=== PATIENT | male | born 1950 | race Caucasian/White ===

== ENCOUNTER 2021-08-26 19:12 | Inpatient (IN) | payer OTHER ==
[~2021-08-26] VITALS: Ht 182.9 cm; Wt 69.5 kg
[~2021-08-26 19:12] MED LIST: BENA20 PO; BENHYD1012 PO; HYDR1TAB94 PO; Hydrochlorothia25 MG PO; IBUP600 PO; Norco 5-325 Ta1 EACH PO; Ultram50 MG PO; Zofran Odt4 MG SL
[2021-08-26 19:30] LABS: PCO2 Arterial 20.8 mmHg (35-45); PO2 Arterial 125 mmHg (80-100); pH Blood Arterial 7.54 (7.35-7.45)
[2021-08-26 19:37] LABS: Hematocrit 34.8 % (37.0-53.0); Hemoglobin 12.2 g/dL (13.5-17.5); Mean Corpuscular HGB 31.3 pg (26.0-34.0); Mean Corpuscular HGB Conc 35.1 g/dL (31.5-36.5); Mean Corpuscular Volume 89 fL (80-100); Mean Platelet Volume 8.8 fL (9.1-12.4); Platelet Count 203 K/mm3 (150-400); RDW Standard Deviation 42.7 fL (35.1-46.3); White Blood Cell Count 4.39 K/mm3 (4.00-11.30)
[2021-08-26 19:59] LABS: BAND PERCENT MAN 40 % (0-8); BASOPHILS PERCENT MAN 0 % (0-2); EOSINOPHILS PERCENT MAN 0 % (0-6); LYMPHOCYTES ABSOLUTE MAN 0.17 K/mm3 (0.84-5.20); LYMPHOCYTES PERCENT MAN 4 % (21-46); METAMYELOCYTE ABSOLUTE MAN 0.39 K/mm3 (0.00-0.00); METAMYELOCYTE PERCENT MAN 9 % (0-0); MONOCYTES ABSOLUTE MAN 0.08 K/mm3 (0.16-1.47); MONOCYTES PERCENT MAN 2 % (4-13); NEUTROPHILS ABSOLUTE MAN 3.73 K/mm3 (1.96-9.15); SEG NEUTROPHILS PERCENT MAN 45 % (41-73); TOTAL CELLS COUNTED 100
[2021-08-26 20:00] LABS: Alanine Aminotransfer (ALT/SGP 25 U/L (12-78); Albumin, Blood 3.6 g/dL (3.4-5.0); Albumin/Globulin Ratio 0.9 (0.8-1.8); Alk Phos 115 U/L (50-136); Anion Gap 15 mmol/L (6-16); Aspartate Aminotrans (AST/SGOT 79 U/L (12-37); Bilirubin, Total 0.7 mg/dL (0.1-1.0); Blood Urea Nitrogen 18 mg/dL (8-24); Bun/Creatinine Ratio 15.8 (12.0-20.0); CO2, Blood 20 mmol/L (21-32); Calcium, Blood 8.7 mg/dL (8.5-10.1); Chloride, Blood 90 mmol/L (98-108); Creatinine, Blood 1.14 mg/dL (0.60-1.20); Ethanol (Alcohol), Blood, Med <3 mg/dL; Glomerular Filtration Rate >60 (60-); Glucose, Blood 103 mg/dL (70-99); Potassium, Blood 3.8 mmol/L (3.5-5.5); Sodium, Blood 125 mmol/L (136-145); Total Protein, Blood 7.6 g/dL (6.4-8.2)
[2021-08-26 20:26] LABS: Influenza A, PCR NEGATIVE (NEGATIVE); Influenza B, PCR NEGATIVE (NEGATIVE); Resp Syncytial Virus, PCR NEGATIVE (NEGATIVE); SARS-Cov-2 (COVID-19) PCR, MMC NEGATIVE (NEGATIVE)
[2021-08-26 21:30] LABS: U Amphetamine Screen Not Detected; U Barbituate Screen Not Detected; U Benzodiazapine Screen Not Detected; U Buprenorphine Screen Not Detected; U Cannabinoids Screen Not Detected; U Cocaine Screen Not Detected; U Methadone Screen Not Detected; U Methamphetamine Screen Not Detected; U Opiates Screen Not Detected; U Oxycodone Screen Not Detected; U Phencyclidine Screen Not Detected; U Propoxyphene Screen Not Detected
[2021-08-26 22:33] LABS: CPK Creatine Kinase 1068 U/L (39-308)
[2021-08-26 22:51] LABS: Creatine Kinase MB 9.4 ng/mL (0.0-3.6); Creatine Kinase MB Index 0.9 (0.0-4.0)
[2021-08-26 23:37] LABS: Source, Urine Condom Cath
[2021-08-26 23:55] LABS: Bilirubin, Urine Neg (Neg); Blood, Urine 4+ (Neg); Glucose Qualitative, Urine 3+ (Neg); Ketones, Urine 1+ (Neg); Leukocyte Esterase, Urine 1+ (Neg); Nitrite, Urine Neg (Neg); Protein, Urine 3+ (Neg); Urobilinogen, Urine 1+ (Normal)
[2021-08-26 23:59] LABS: Appearance, Urine Hazy (Clear); Color, Urine Yellow (P-Yellow)
[2021-08-27 00:03] LABS: Bacteria Many /hpf; Red Blood Cells, Urine Rare /hpf (0-2); Squamous Epithelial Cells Not Seen /hpf (Few)
[2021-08-27 00:05] LABS: Troponin I <0.015 ng/mL (0.000-0.040)
[2021-08-27 02:25] LABS: Source, Urine Foley catheter
[2021-08-27 02:33] LABS: Bilirubin, Urine Neg (Neg); Blood, Urine 5+ (Neg); Glucose Qualitative, Urine Neg (Neg); Ketones, Urine Neg (Neg); Leukocyte Esterase, Urine Neg (Neg); Nitrite, Urine Neg (Neg); Protein, Urine 3+ (Neg); Urobilinogen, Urine NORM (Normal)
[2021-08-27 02:54] LABS: Appearance, Urine Clear (Clear); Color, Urine Yellow (P-Yellow)
[2021-08-27 02:56] LABS: Bacteria Not Seen /hpf; Red Blood Cells, Urine Rare /hpf (0-2); Squamous Epithelial Cells Rare /hpf (Few); White Blood Cells, Urine 0-2 /hpf (0-5)
[2021-08-27 04:59] LABS: Hematocrit 30.1 % (37.0-53.0); Hemoglobin 10.4 g/dL (13.5-17.5); Mean Corpuscular HGB 31.5 pg (26.0-34.0); Mean Corpuscular HGB Conc 34.6 g/dL (31.5-36.5); Mean Corpuscular Volume 91 fL (80-100); Mean Platelet Volume 9.5 fL (9.1-12.4); NRBC ABSOLUTE 0.03 K/mm3 (0.00-0.02); NRBC Auto 0.1 /100 WBC (0.0-0.2); Platelet Count 140 K/mm3 (150-400); RDW Coefficient Variation 13.2 % (11.7-14.2); RDW Standard Deviation 44.9 fL (35.1-46.3); White Blood Cell Count 20.92 K/mm3 (4.00-11.30)
[2021-08-27 05:45] LABS: Anion Gap 11 mmol/L (6-16); Blood Urea Nitrogen 17 mg/dL (8-24); Bun/Creatinine Ratio 19.5 (12.0-20.0); CO2, Blood 22 mmol/L (21-32); Chloride, Blood 92 mmol/L (98-108); Creatinine, Blood 0.87 mg/dL (0.60-1.20); Glomerular Filtration Rate >60 (60-); Glucose, Blood 141 mg/dL (70-99); Potassium, Blood 3.4 mmol/L (3.5-5.5); Sodium, Blood 125 mmol/L (136-145)
[2021-08-27 05:47] LABS: CPK Creatine Kinase 2244 U/L (39-308)
--- NOTE | 2021-08-27 06:12 | NUR ---
0015 PT ARRIVES TO ICU 10 VIA GURNEY FROM ER, LETHARGIC, MOANS, DOES NOT FOLLOW COMMANDS, DOES OPEN EYES TO VERBAL BUT DOES NOT MAKE EYE CONTACT AND QUICKLY CLOSES THEM AGAIN. D10 INFUSING AT 100 ML/HR AND NS AT 50 ML/HR TO LEFT AC IV, FIELD DRESSING IN PLACE. SECOND IV ACCESS TO RIGHT FOREARM, FLUSHES WELL, SITE WNL. 0020 TRANSFERRED TO BED WITH 5 STAFF ASSIST, PARTIAL BEDBATH COMPLETED AT THIS TIME DUE TO PT ATTENDS AND BEDDING SATURATED WITH URINE. 0036 POC GLUCOSE OBTAINED, 47, D10 INCREASED TO 150 ML/HR BY VERIFICATION CLERK HIREN DENNY, THIS RN REQUESTED VERIFICATION CLERK CONTACT HOSPITALIST TREASURY ASSOCIATE FOR ORDERS TO TITRATE D10, DRESSING TO LEFT AC IV IS NOTED LOOSE, DRESSING REPLACED, ABLE TO ASPIRATE BLOOD FROM SITE AND FLUSHES WELL POST DRESSING CHANGE. 0040 LAB AT BEDSIDE FOR REFLEX LACTIC ACID DRAW, POC GLUCOSE OBTAINED, 53 0050 IV COMPATIBILITY LIST OBTAINED 0102 IV ROCEPHIN STARTED INFUSING, PIGGYBACK TO NORMAL SALINE WHICH IS MOVED TO RIGHT FOREARM IV DUE TO COMPATIBILITY ISSUES. 0106 D5 WITH THIAMINE, MVI, MAGNESIUM, ETC STARTED INFUSING AT 200 ML/HR PER ORDERS, Y SITE WITH D10, DISCUSSED COMPATIBILITY WITH PHARMACIST 0110 THIAMINE PIGGYBACK STARTED INFUSING TO RIGHT FOREARM Y SITE, COMPATIBLE WITH NORMAL SALINE AND ROCEPHIN 0112 THIS RN NOTIFIED BY LAB OF CRITICAL LACTIC ACID, 7.5, INCREASED FROM 5.8 EARLIER, THIS RN CONTACTED VERIFICATION CLERK HIREN DENNY AND REQUESTED THAT LACTIC LEVEL BE REPORTED WITH PHONE CALL TO HOSPITALIST TREASURY ASSOCIATE. ALSO REQUESTED MT TYLENOL AND CUMMINGS CATHETER ORDERS. 0125 POC GLUCOSE OBTAINED, 86 0135 INFILTRATION NOTED TO LEFT AC IV SITE, D10 MOVED TO RIGHT FOREARM IV, THIAMINE INFUSION PAUSED 0145 REQUESTED EXTENDED DWELL ACCESS, ASSESSING FOR PERIPHERAL SITE 0200 EXTENDED DWELL TO LEFT UPPER ARM, PT TOLERATED WELL, NEW 18 GAUGE TO LEFT FOREARM, LEFT AC IV DC'D, ZITHROMAX STARTED INFUSING TO LEFT FOREARM IV, D10/D5 THIAMINE/NORMAL SALINE MOVED TO EXTENDED DWELL FOR INFUSION, THIAMINE INFUSION RESUMED TO RIGHT FOREARM IV. 0213 LR COMPATIBLE WITH THIAMINE INFUSION, LR BOLUS TO RIGHT FOREARM IV PER ORDERS 0214 TEMP PROBE CUMMINGS PLACED, PT TOLERATED WELL, UA SENT 0221 POC GLUCOSE OBTAINED 157, REMAINS GREATER THAN 100 FOR THE REMAINDER OF THIS SHIFT 0240 PHOTOS OF BUTTOCKS ABRASION ATTEMPTED, CAMERA DOES NOT POWER ON AT THIS TIME, MEPILEX SACRAL PROTECTION PLACED AND MT TYLENOL ADMIN 0300 PT ABLE TO FORM WORDS, DOES NOT KNOW WHERE HE IS, EXPLAINED THAT HE IS IN [facility] IN THE ICU, HE IS UNABLE TO RESTATE THIS 3 MINUTES LATER PT HEART RATE, TEMP, AND GLUCOSE CONTINUE TO IMPROVE FOR THE DURATION OF THE SHIFT. HE IS NOTED TO FREQUENTLY REPOSITION HIMSELF AND SIT UP, BED ALARM IS ARMED. DISCUSSED REPEAT LACTIC WITH DR MCKENNA AND ADDED ON TO 0440 LABS, THIS IS IMPROVED TO 3.3 AND RESULTS DISCUSSED WITH HIREN DENNY.
--- NOTE | 2021-08-27 12:23 | NUR ---
PT GIVEN ATIVAN AT 0910 2MG ON A ONE MG ORDER THE ORDERS FOR 2MG Q15 HAD NOT BEEN ENTERED AT THAT TIME. PYXIS SHOWNING UNDOCUMENTED WASTE OF 1MG BUT THIS ISNT ACCURATE BASED ON ORIGINAL STATEMENT.
--- NOTE | 2021-08-27 12:25 | NUR ---
ASSUMED CARE OF PT AT 0700. PT ASSEMENT PERFORMED SNOTED IN CHART. DR MULLER BY AND ORDER TO START CIWA PROTOCOL GIVEN, ALSO TO REDUCE D10 AND TITRATE TO DC IF PT BS CONTINUE TO NORMALIZE. PT BS AT THIS TIME 139, D10 DOWN TO 50ML/HR. WILL CONTINUE TO MONITOR, PT VITALS AT THIS TIME ARE WNL. PT RESTRAINED AT 1100 FOR CONTINUED AGITATION ATTEMPS TO REMOVE MED DEVICES.
--- NOTE | 2021-08-27 16:33 | NUR ---
DR MULLER STATED IF ABLE, TITRAIT OFF THE D10 AND RESTART IF BS LESS THEN 100. NSS STARTED WELL AT 125ML/HR
[2021-08-28 04:47] LABS: Hematocrit 29.4 % (37.0-53.0); Hemoglobin 10.1 g/dL (13.5-17.5); Mean Corpuscular HGB 31.1 pg (26.0-34.0); Mean Corpuscular HGB Conc 34.4 g/dL (31.5-36.5); Mean Corpuscular Volume 91 fL (80-100); Mean Platelet Volume 10.7 fL (9.1-12.4); Platelet Count 89 K/mm3 (150-400); RDW Coefficient Variation 12.7 % (11.7-14.2); RDW Standard Deviation 42.2 fL (35.1-46.3); Red Blood Cell Count 3.25 M/mm3 (4.30-5.90); White Blood Cell Count 14.94 K/mm3 (4.00-11.30)
[2021-08-28 05:04] LABS: Alanine Aminotransfer (ALT/SGP 35 U/L (12-78); Albumin, Blood 2.3 g/dL (3.4-5.0); Albumin/Globulin Ratio 0.7 (0.8-1.8); Alk Phos 73 U/L (50-136); Anion Gap 9 mmol/L (6-16); Aspartate Aminotrans (AST/SGOT 133 U/L (12-37); Bilirubin, Total 0.4 mg/dL (0.1-1.0); Blood Urea Nitrogen 11 mg/dL (8-24); Bun/Creatinine Ratio 18.4 (12.0-20.0); CO2, Blood 25 mmol/L (21-32); Calcium, Blood 7.1 mg/dL (8.5-10.1); Chloride, Blood 91 mmol/L (98-108); Globulin, Blood 3.5 g/dL (2.2-4.0); Glomerular Filtration Rate >60 (60-); Glucose, Blood 100 mg/dL (70-99); Potassium, Blood 3.1 mmol/L (3.5-5.5); Sodium, Blood 125 mmol/L (136-145); Total Protein, Blood 5.8 g/dL (6.4-8.2)
[2021-08-28 05:09] LABS: BAND PERCENT MAN 43 % (0-8); BASOPHILS PERCENT MAN 0 % (0-2); EOSINOPHILS PERCENT MAN 0 % (0-6); LYMPHOCYTES ABSOLUTE MAN 0.59 K/mm3 (0.84-5.20); LYMPHOCYTES PERCENT MAN 4 % (21-46); MONOCYTES ABSOLUTE MAN 0.14 K/mm3 (0.16-1.47); MONOCYTES PERCENT MAN 1 % (4-13); NEUTROPHILS ABSOLUTE MAN 14.19 K/mm3 (1.96-9.15); SEG NEUTROPHILS PERCENT MAN 52 % (41-73); TOTAL CELLS COUNTED 100
--- NOTE | 2021-08-28 06:12 | NUR ---
SHIFT SUMMARY ASSUMED CARE OF PT AT 1900. PT ONLY RESPONDS TO VERBAL OR PAINFUL STIMULUS. NOW LATER IN THE SHIFT AT AROUND 0500, PT IS ABLE TO OPEN EYES AND SAY ONE WORD SENTENCES LIKE "NO" AND "WHY". HEART SOUNDS REGULAR, TELE SHOWS SINUS. LUNG SOUNDS COURSE WITH WHEEZES. PT IS COUGHING UP THICK YELLOW SPUTUM. PT WAS ON 3L NC AT THE START OF SHIFT BUT IS NOW RA. PT WILL DESAT WHEN HE COUGHS OR HAS PHLEM IN HIS THROAT, BUT POP BACK UP TO 90'S WHEN CLEARED. PT HAS A CUMMINGS DRAINING YELLOW URINE. PT CIWAH RANGED IN THE 20'S. MEDICATED PER EMAR. PT REMAINED RESTRAINED DUE TO CONFUSION AND PULLING ON CATHETER AND IV LINES. PT HAS A SMALL ABRASION ON HIS L BUTTOCK. PICTURES IN CHART. CALL LIGHT IN REACH, BED IN LOWEST POSTION, BED ALARM ON.
--- NOTE | 2021-08-28 17:24 | NUR ---
assumed care of pt in the am. pt resting comfortable and in no distress. pt continues to have ciwa scores in the 8-15 range. pt also continues to have copious amounts of secreations req. deep oral and nt suction. sats have remained in the upper 90s but at times of cough, upper 80s. will continue to monitor
--- NOTE | 2021-08-28 19:30 | NUR ---
ASSESSMENT/ASSUMED CARE PT SLEEPING, AWAKENS TO VERBAL STIMULI. SPEECH MUMBLED. NOT FOLLOWING INSTRUCTIONS. BACK TO SLEEP QUICKLY WHEN UNDISTURBED. LUNGS WITH SNORING SOUNDS TO UPPER LOBES AND CLEAR IN THE BASES BUT DECREASED. PT ON 5 LITER O2 VIA NC. SPO2 100%. DECREASED FIO2 TO 3 LITERS VIA NC. RESP EVEN AND NONLABORED. HEART RATE REGULAR, BP STABLE. BT+ HYPOACTIVE. PT NPO. IB 20 G TO RIGHT FOREARM SALINE LOCKED, SITE CLEAR, FLUSHED WITHOUT DIFFICULTY. POWER GLIDE TO LEFT UPPER WITH NS AT 125 ML/HR AND D10 AT 35 ML/HR. SITE CLEAR, DRSG INTACT. CUMMINGS CATH PATENT DRAINING YELLOW URINE. ATTENDS CD&I. DRSG TO COCCYX INTACT. BILAT SOFT WRIST RESTRAINTS ON.
--- NOTE | 2021-08-28 20:24 | NUR ---
MD CALL CALL TO DR RAMIREZ REGARDING D10 GTT AND BLOOD GLUCOSE. RECEIVED ORDERSE TO KEEP BLOOD GLUCOSE 70-80, AND D10 TITRATE.
--- NOTE | 2021-08-28 22:24 | NUR ---
O2 INCREASED O2 BACK TO 5 LITERS DUE TO SPO2 AT 87% ON 3 LITERS VIA NC. PT SLEEPING AND SNORING.
[2021-08-29 04:19] LABS: Hematocrit 28.2 % (37.0-53.0); Hemoglobin 9.6 g/dL (13.5-17.5); Mean Corpuscular HGB 30.7 pg (26.0-34.0); Mean Corpuscular Volume 90 fL (80-100); Mean Platelet Volume 11.4 fL (9.1-12.4); Platelet Count 71 K/mm3 (150-400); RDW Coefficient Variation 12.7 % (11.7-14.2); RDW Standard Deviation 41.9 fL (35.1-46.3); Red Blood Cell Count 3.13 M/mm3 (4.30-5.90)
[2021-08-29 04:33] LABS: Alanine Aminotransfer (ALT/SGP 29 U/L (12-78); Albumin, Blood 2.2 g/dL (3.4-5.0); Albumin/Globulin Ratio 0.7 (0.8-1.8); Alk Phos 79 U/L (50-136); Anion Gap 7 mmol/L (6-16); Aspartate Aminotrans (AST/SGOT 85 U/L (12-37); Bilirubin, Total 0.2 mg/dL (0.1-1.0); Blood Urea Nitrogen 7 mg/dL (8-24); Bun/Creatinine Ratio 14.1 (12.0-20.0); CO2, Blood 26 mmol/L (21-32); Calcium, Blood 6.8 mg/dL (8.5-10.1); Chloride, Blood 92 mmol/L (98-108); Globulin, Blood 3.3 g/dL (2.2-4.0); Glomerular Filtration Rate >60 (60-); Glucose, Blood 97 mg/dL (70-99); Magnesium, Blood 1.5 mg/dL (1.6-2.4); Potassium, Blood 2.8 mmol/L (3.5-5.5); Sodium, Blood 125 mmol/L (136-145); Total Protein, Blood 5.5 g/dL (6.4-8.2)
--- NOTE | 2021-08-29 04:56 | NUR ---
CALL TO MD CALL TO DR MCKENNA REGARDING LABS, ORDERS OBTAINED.
--- NOTE | 2021-08-29 06:04 | NUR ---
SHIFT SUMMARY PT RESTING QUIETLY. MUMBLES TO VERBAL STIMULI BUT UNABLE TO UNDERSTAND. FOLLOWS SOME SIMPLE INSTRUCTIONS AT TIMES LIKE OPEN YOUR MOUTH. BILAT SOFT WRIST RESTRAINTS ON. PT TURNED Q2HRS. FREQUENT ORAL CARE DONE DUE TO PT BEING A MOUTH BREATHER. O2 TITRATED DOWN TO 3 LITERS THAN BACK UP TO 5 LITERS IN THE MOUTH DUE TO MOUTH BREATHING. HEART RATE REGULAR, BP STABLE. CALL TO DR MCKENNA WITH LABS THIS AM, REPLACING POTASSIUM, MAG AND CALCIUM. STOPPED LOVENOX DUE TO DECREASE IN PLT TO 71, SCD'S APPLIED. CUMMINGS CATH PATENT AND DRAINING YELLOW URINE. PT OFF D10, CONT TO MONITOR BLOOD GLUCOSE TO KEEP ABOVE 80. REPORT TO ON COMING NURSE.
--- NOTE | 2021-08-29 09:35 | NUR ---
ASSUMED CARE NOTE: ASSUMED CARE OF PT AT 0700. PT RESPONDS TO PAINFUL STIMULI, UNABLE TO FOLLOW COMMANDS OR COMMUNICATE NEEDS. MOANS AND MOVING HEAD FROM SIDE TO SIDE WITH ORAL CARE. PT IS IN NSR WITH HR IN THE 70'S, BP STABLE. PT IS HAVING SNORING RESPERATIONS TO BILAT UPPER LOBES, DIM IN THE BASES. NT SUCTION PROVIDED YELLOW MUCOID SECRETIONS NOTED, PINK TINGED. ORAL CARE PROVIDED. BOWEL TONES HYPO ACTIVE TO ALL QUADRANTS. CUMMINGS PATENT, DRAINING TO GRAVITY. WILL CONTINUE TO MONITOR T/O SHIFT.
[2021-08-29 11:24] LABS: Albumin, Blood 2.3 g/dL (3.4-5.0); Anion Gap 7 mmol/L (6-16); Blood Urea Nitrogen 6 mg/dL (8-24); Bun/Creatinine Ratio 10.4 (12.0-20.0); CO2, Blood 26 mmol/L (21-32); Chloride, Blood 94 mmol/L (98-108); Creatinine, Blood 0.58 mg/dL (0.60-1.20); Glomerular Filtration Rate >60 (60-); Glucose, Blood 85 mg/dL (70-99); Phosphorus, Blood 2.5 mg/dL (2.5-4.9); Potassium, Blood 3.7 mmol/L (3.5-5.5); Sodium, Blood 127 mmol/L (136-145)
[2021-08-29 11:54] LABS: PO2 Arterial 196 mmHg (80-100); pH Blood Arterial 7.31 (7.35-7.45)
--- NOTE | 2021-08-29 14:34 | NUR ---
UPDATE: PT REMAINS SOMNOLENT. AT APPROX 1130, PT DESATURATED INTO THE LOW 80'S,RT AT BEDSIDE. CALLED, ORDERS TO OBTAIN CHEST X-RAY, INITIATE BIPAP PROTOCOL. BIPAP SETTINGS 14/8, FiO2 50%, RR 15-20. SOFT BLOOD PRESSURES NOTED, MAP ABOVE 65. WILL CONTINUE TO MONITOR
--- NOTE | 2021-08-29 17:04 | NUR ---
UPDATE: PT DESATURATED INTO THE LOW 50'S, FiO2 INCREASED TO 100%, RT CALLED TO BEDSIDE. PT NT SUCTIONED, FROTHY PINK TINGED SECRETIONS NOTED, SPO2 INCREASED TO 97%, FiO2 DROPPED TO 30% WILL CONTINUE TO MONITOR
--- NOTE | 2021-08-29 18:58 | NUR ---
SHIFT SUMMARY: SEE PREVIOUS NOTES. PT IS RESPONDING TO PAINFUL STIMULI, MUMBLES A FEW WORDS SUCH "YES, NO, WHAT" DOES NOT FOLLOW COMMNDS. PT IS MOVING AROUND MORE THAN EARLIER IN THE SHIFT. PT ON BIPAP SETTINGS 14/8, FiO2 30% WITH SPO2 ABOVE 90% PT WILL DESATURATE QUICKLY, INDICATING HE NEEDS NT SUCTION, FROTHY PINK TINGED SECRETIONS NOTED. PT HAS BEEN IN SR WITH HR IN THE 70'S, BP STABLE. POOR CAP REFILL TO BILAT HANDS, SOME MOTTILING NOTED. ABD IS DISTENDED, HYPOACTIVE BOWEL TONES NOTED. CUMMINGS PATNENT, DRAINING TO GRAVITY, CHRISTINE COLORED IN URINE. BED AT LOWEST LEVEL, WILL CONTINUE TO MONITOR PT UNTIL REPORT IS GIVEN TO ONCOMING SHIFT.
--- NOTE | 2021-08-29 19:30 | NUR ---
ASSUMED CARE PATIENT LYING IN BED W/ BIPAP IN PLACE 14/8 FIO2 30% AND SPO2 IN MID 90'S. D10 @ 25ML TITRATED TO KEEP CBG BETWEEN 70-80 AND NS @ 125ML/HR INFO INTO YUSUF PWERGLIDE. 20G TO RT FOREARM SALINE LOCKED. FOLWY PATENT AND DRAINING TO GRAVITY. PATIENT DOES NOT OPEN EYES WHEN STAFF ARE IN ROOM. BEDSIDE REPORT COMPLETED W/ DAYSHIFT RN.
--- NOTE | 2021-08-30 05:10 | NUR ---
SHIFT SUMMARY PATIENT WAS SWITCHED FROM BIPAP 14/8 FIO2 30% TO CPAP 7 FIO2 21%. SPO2 MAINTAINED LOW TO MID 90'S. PATIENT SOMNOLENT T/O SHIFT, BUT IS NOW STARTING TO FOLLOW SIMPLE COMMANDS SUCH GRIPPING HANDS AND ATTEMPTING TO OPEN EYES. CBG WAS HIGH IN 110'S-140'S, D10 GTT OFF FOR 4 HOURS UNTIL CBG CORRECTED TO 92-D10 STARTED AT LOW RATE AND CURRENTLY INF @ 20ML/HR INTO YUSUF POWERGLIDE W/ NS @ 125 ML/HR. NS TKO INF INTO 20G IV TO EVERARDO. TEMP CUMMINGS REMAINED PATENT W/ 600ML OUT OF CLEAR YELLOW URINE. NO BM THIS SHIFT, BUT BT HYPERACTIVE. PATIENT REQUIRED FREQUENT SUCTIONING OF SECRETIONS BOTH ORALLY AND NT. NASAL TRUMPET IN RT NARE TO MINIMIZE INTRANASAL AND SINUS TRAUMA. BP REMAINED STABLE AND PATIENT REQUIRED 1 DOSE OF ATIVAN 2MG IV FOR CIWA OF 10. NO OTHER MAJOR CHANGES DURING SHIFT.
--- NOTE | 2021-08-30 05:53 | NUR ---
O2 DESAT PATIENT BEGAN DESATTING INTO 80'S AND LUNG SOUNDS WERE DECREASED DESPITE RECENT SUCTIONING. RT CALLED TO BEDSIDE TO NT ELOY AND PATIENT PLACED BACK ON BIPAP 14/8 FIO2 30%. SPO2 NOW IN HIGH 90'S.
--- NOTE | 2021-08-30 08:57 | NUR ---
AM NOTE.... ASSUMED CARE OF PT AT 0700, THE PT IS ON THE BIPAP AT 14/8 AND 30% WITH O2 SATS >90%. L/S VERY DIM T/O. THE PT WILL MOAN AND PULL AWAY FROM PAINFUL/NOXIOUS STIMULI BUT WILL NOT FOLLOW COMMANDS. HE WILL NOT OPEN HIS EYES EITHER. THE PT IS ABLE TO WEAKLY MOVE HIS EXTREMITES. THE PT'S EYE LIDS ARE SWOLLEN AND HE HAS BILATERAL SCLERAL EDEMA. A NASAL TRUMPET IN PLACE TO THE RIGHT NARE FOR NT SUCTION. THE PT'S BP IS STABLE AT THIS TIME, HE IS IN SR IN THE 70'S. DEPENDENT EDEMA NOTED TO HIS BILATERAL HANDS. BT PRESENT AND HYPOACTIVE, ABD HAS MODERATE DISTENTION AND IS FIRM TO PALPATION. CUMMINGS IS PATENT AND DRAINING TO GRAVITY. WILL CONTINUE TO MONITOR.
[2021-08-30 09:10] LABS: Hematocrit 28.3 % (37.0-53.0); Mean Corpuscular HGB 31.6 pg (26.0-34.0); Mean Corpuscular HGB Conc 35.3 g/dL (31.5-36.5); Mean Corpuscular Volume 90 fL (80-100); Platelet Count 134 K/mm3 (150-400); RDW Standard Deviation 42.7 fL (35.1-46.3); Red Blood Cell Count 3.16 M/mm3 (4.30-5.90); White Blood Cell Count 8.94 K/mm3 (4.00-11.30)
[2021-08-30 09:22] LABS: Alanine Aminotransfer (ALT/SGP 26 U/L (12-78); Albumin, Blood 1.9 g/dL (3.4-5.0); Albumin/Globulin Ratio 0.6 (0.8-1.8); Alk Phos 96 U/L (50-136); Anion Gap 4 mmol/L (6-16); Aspartate Aminotrans (AST/SGOT 75 U/L (12-37); Bilirubin, Total 0.4 mg/dL (0.1-1.0); Blood Urea Nitrogen 5 mg/dL (8-24); Bun/Creatinine Ratio 9.1 (12.0-20.0); CO2, Blood 27 mmol/L (21-32); Calcium, Blood 6.8 mg/dL (8.5-10.1); Chloride, Blood 96 mmol/L (98-108); Creatinine, Blood 0.55 mg/dL (0.60-1.20); Globulin, Blood 3.3 g/dL (2.2-4.0); Glomerular Filtration Rate >60 (60-); Glucose, Blood 82 mg/dL (70-99); Magnesium, Blood 1.5 mg/dL (1.6-2.4); Potassium, Blood 4.5 mmol/L (3.5-5.5); Sodium, Blood 127 mmol/L (136-145); Total Protein, Blood 5.2 g/dL (6.4-8.2)
--- NOTE | 2021-08-30 18:57 | NUR ---
SHFIT SUMMARY.... NO ACUTE NEGATIVE CHANGES NOTED THIS SHIFT. THE PT HAS BEEN LETHARGIC AND NOT FOLLOWING COMMANDS ALL SHIFT, THE PT WILL WITHDRAW FROM PAINFUL/NOXIOUS STIMUILI BUT WILL NOT FOLLOW COMMANDS OR OPEN HIS EYES. THE PT HAS BEEN TURNED Q2 HRS THIS SHIFT. HE HAS NEEDED NT SUCTIONING SEVERAL TIME T/O THIS SHIFT. ORAL CARE DONE Q2 HRS WELL. THE PT'S FAMILY AT THE BEDSIDE FOR A FAMILY MEETING WITH DR. MENENDEZ TO TALK ABOUT COMFORT CARE. THEY PLAN TO SPEAK WITH THE REST OF THE FAMILY AND GO FROM THERE. THE PT'S VS HAVE BEEN STABLE T/O THIS SHIFT, NO CHANGES TO THE BIPAP SETTINGS. THE PT'S CUMMINGS IS PATENT AND DRAINING TO GRAVITY. WILL CONTINUE TO MONITOR UNTIL REPORT IS GIVEN TO ONCOMING RN.
--- NOTE | 2021-08-30 19:30 | NUR ---
ASSUMED CARE PATIENT LYING IN BED WITH BIPAP IN PLACE AND EYES CLOSED. NO FAMILY AT BEDSIDE AT THIS TIME. D10 @ 20ML/HR AND NS @ 125ML/HR INF TO YUSUF POWER GLIDE. CUMMINGS PATENT AND DRAINING TO GRAVITY. V/S STABLE AT THIS TIME. REPORT COMPLETED WITH NAVARRO JAIME.
[2021-08-31 03:24] LABS: Hematocrit 28.4 % (37.0-53.0); Hemoglobin 10.3 g/dL (13.5-17.5); Mean Corpuscular HGB 31.6 pg (26.0-34.0); Mean Corpuscular HGB Conc 36.3 g/dL (31.5-36.5); Mean Corpuscular Volume 87 fL (80-100); Mean Platelet Volume 11.6 fL (9.1-12.4); Platelet Count 100 K/mm3 (150-400); RDW Coefficient Variation 12.8 % (11.7-14.2); Red Blood Cell Count 3.26 M/mm3 (4.30-5.90); White Blood Cell Count 7.87 K/mm3 (4.00-11.30)
[2021-08-31 03:41] LABS: Alanine Aminotransfer (ALT/SGP 25 U/L (12-78); Albumin, Blood 2.2 g/dL (3.4-5.0); Albumin/Globulin Ratio 0.7 (0.8-1.8); Alk Phos 112 U/L (50-136); Anion Gap 8 mmol/L (6-16); Aspartate Aminotrans (AST/SGOT 51 U/L (12-37); Bilirubin, Total 0.4 mg/dL (0.1-1.0); Blood Urea Nitrogen 3 mg/dL (8-24); Bun/Creatinine Ratio 5.7 (12.0-20.0); CO2, Blood 27 mmol/L (21-32); Calcium, Blood 7.7 mg/dL (8.5-10.1); Chloride, Blood 97 mmol/L (98-108); Creatinine, Blood 0.53 mg/dL (0.60-1.20); Globulin, Blood 3.3 g/dL (2.2-4.0); Glomerular Filtration Rate >60 (60-); Glucose, Blood 88 mg/dL (70-99); Magnesium, Blood 1.5 mg/dL (1.6-2.4); Potassium, Blood 2.8 mmol/L (3.5-5.5); Sodium, Blood 132 mmol/L (136-145); Total Protein, Blood 5.5 g/dL (6.4-8.2)
--- NOTE | 2021-08-31 06:16 | NUR ---
SHIFT SUMMARY PATIENT REMAINED RESTRAINED DURING SHIFT AND CONFUSED. WHEN OUT OF RESTRAINTS HE WOULD PULL AT HIS LEADS, TAKE OFF HIS GOWN, AND ATTEMPT TO EXIT THE BED. PATIENT REMAINS ON ROOM AIR WITH SPO2 IN MID TO HIGH 90'S. COUGH IS GETTING STRONGER BUT STILL REQUIRES ORAL SUCTIONING; TRUMPET REMOVED AND NO NT SUCTIONING NEEDED DURING SHIFT. PATIENT IS ABLE TO COMMUNICATE BETTER TOWARDS END OF SHIFT, BUT STILL SLURS WORDS AND TRACKS TO SOUND. OVER 3L URINE OUT VIA CUMMINGS. LUNG SOUNDS ARE MORE FINE THAN COARSE. NO OTHER MAJOR CHANGES DURING SHIFT.
--- NOTE | 2021-08-31 08:54 | NUR ---
AM NOTE.... ASSUMED CARE OF PT AT 0700, THE PT IS SLEEPING BUT WAKES SLOWLY TO VERBAL STIMULI AND TOUCH, THE PT'S SPEECH IS VERY GARBLED AND GURGLY, THE PT'S COUGH IS WEAK BUT IMPROVED FROM YESTERDAY, FREQUENT ORAL SUCTION USED WHEN THE PT COUGHS. THE PT IS ON RA WITH O2 SATS >90%, L/S COARSE T/O DIM IN THE BASES, BUT SLIGHTLY IMPROVED FROM YESTERDAY WELL. THE PT IS IN SR IN THE 70'S-80'S, BP STABLE. THE PT IS ABLE TO FOLLOW COMMANDS AND WAS ASKING FOR STAFF TO CHANGE THE TV TO "[employer]." CALL LIGHT IN REACH WILL CONTINUE TO MONITOR.
--- NOTE | 2021-08-31 15:25 | NUR ---
PT UPDATE.... THE PT CONTINUES TO BE MORE ALERT AND AWAKE THAN DURING THE AM ASSESSMENT. THE PT HAS SAT UP ON THE SIDE OF THE BED SEVERAL TIMES WITH STAFF ASSIST AND WAS GOTTEN UP TO A RECLINER CHAIR WITH 2P MAX ASSIST. TAB ALARM IS SET ON THE CHAIR WHILE THE PT IS UP. THE PT KEEPS REQUESTING COFFEE, THE PT WAS EDUCATED ON HIS CURRENT SITUATION AND HIS HIGH RISK FOR ASPRIATION, THE PT VERBALIZED HIS UNDERSTANDING BUT STATED "ILL BE FINE JUST GIVE ME COFFEE!" THE PT'S SISTER HIEN WAS UPDATED ON THE PT'S IMPROVEMENT AND EVENTS OF TODAY. THE PT'S STATUS HAS BEEN CHANGED TO PCU STATUS. HIS CBGs HAVE BEEN STABLE IN THE 80'S ON 25MLS/HR OF D10. WILL CONTINUE TO MONITOR.
--- NOTE | 2021-08-31 18:12 | NUR ---
SHIFT SUMMARY.... NO ACUTE NEGATIVE CHANGES NOTED THIS SHIFT. THE PT WAS UP IN THE CHAIR APROX 4 HOURS, THE LIFT WAS USED TO GET THE PT BACK INTO THE BED. THE PT'S VS HAVE BEEN STABLE T/O THIS SHIFT. THE PT CONTINUES TO BE NPO D/T HIGH ASPRIATION RISKS. THE PT'S CUMMINGS IS PATENT AND DRAINING CLEAR YELLOW URINE TO GRAVITY. THE PT'S FAMILY WAS UPDATED ON THE PT'S CONDITION AND THE PLAN OF CARE. THE PT'S CBGs CONTINUE TO BE STABLE ON D10 AT 20MLS/HR. CALL LIGHT IN REACH, BED ALARM IS ON WILL CONTINUE TO MONITOR UNTIL REPORT IS GIVEN TO ONCOMING RN.
--- NOTE | 2021-08-31 19:30 | NUR ---
ASSUMED CARE PATIENT LYING IN BED AWAKE WITH TELEVISION PLAYING. ON ROOM AIR. NSR W/ RATE 80'S-90'S. D10 INF INTO YUSUF POWERGLIDE @ 20ML/HR, NS INF @ 125ML/HR. 20G TO EVERARDO SALINE LOCKED. CUMMINGS PATENT AND DRAINING TO GRAVITY. BESIDE REPORT COMPLETED W/ DAYSHIFT YENI.
[2021-09-01 04:00] LABS: Hematocrit 31.8 % (37.0-53.0); Hemoglobin 11.2 g/dL (13.5-17.5); Mean Corpuscular HGB Conc 35.2 g/dL (31.5-36.5); Mean Corpuscular Volume 88 fL (80-100); Platelet Count 171 K/mm3 (150-400); RDW Coefficient Variation 13.2 % (11.7-14.2); RDW Standard Deviation 42.8 fL (35.1-46.3); Red Blood Cell Count 3.61 M/mm3 (4.30-5.90); White Blood Cell Count 7.38 K/mm3 (4.00-11.30)
[2021-09-01 04:21] LABS: Alanine Aminotransfer (ALT/SGP 25 U/L (12-78); Albumin, Blood 2.3 g/dL (3.4-5.0); Albumin/Globulin Ratio 0.6 (0.8-1.8); Alk Phos 121 U/L (50-136); Anion Gap 8 mmol/L (6-16); Aspartate Aminotrans (AST/SGOT 46 U/L (12-37); Bilirubin, Total 0.5 mg/dL (0.1-1.0); Blood Urea Nitrogen 3 mg/dL (8-24); Bun/Creatinine Ratio 6.2 (12.0-20.0); CO2, Blood 27 mmol/L (21-32); Calcium, Blood 7.6 mg/dL (8.5-10.1); Chloride, Blood 93 mmol/L (98-108); Creatinine, Blood 0.48 mg/dL (0.60-1.20); Globulin, Blood 3.9 g/dL (2.2-4.0); Glomerular Filtration Rate >60 (60-); Glucose, Blood 86 mg/dL (70-99); Magnesium, Blood 1.5 mg/dL (1.6-2.4); Sodium, Blood 128 mmol/L (136-145); Total Protein, Blood 6.2 g/dL (6.4-8.2)
--- NOTE | 2021-09-01 06:39 | NUR ---
SHIFT SUMMARY PATIENT REMAINED ON ROOM AIR AND SLEPT T/O SHIFT. MENTATION IS IMPROVING AND PATIENT IS ABLE TO ASK QUESTIONS REGARDING CARE AND MAKE SIMPLE CONVERSATION, BUT SPEECH IS STILL SLURRED. CBG STABLE IN 70'S-80'S. D10 OFF SINCE 344. NS INF @ 125ML/HR. LABS THIS MORNING SHOWED LOW POTASSIUM AND MAG, KCL 20MEQ X 2 AND MAG 1G ORDERED AND STARTED. CUMMINGS PATENT AND DRAINED 4305ML OUT. NO BM THIS SHIFT, BUT BT HYPERACTIVE AND PASSING GAS. NO OTHER MAJOR CHANGES DURING SHIFT.
--- NOTE | 2021-09-01 08:45 | NUR ---
AM NOTE... ASSUMED CARE OF PT AT 0700, THE PT IS A&O3, SPEECH IS SLOW AND SLURRED BUT IMPROVED FROM YESTERDAY. THE PT IS ON RA WITH O2 SATS >90% THE RIGHT UPPER LOBE IS COARSE THE OTHER LOBES ARE CLEAR AND DIM IN THE BASES. THE PT'S COUGH CONTINUES TO BE WEAK AND MOIST, ORAL CARE AND SUCTIONING PRN. THE PT'S VS STABLE. BT PRESENT AND HYPOACTIVE, ABD HAS MILD DISTENTION AND IS SLIGHTLY FRIM TO PALP. CUMMINGS IS PATENT AND DRAINING TO GRAVITY. THE D10 DRIP HAS BEEN OFF SINCE APROX 0330 PER NOC SHIFT RN. THE PT'S CBG THIS AM WAS 78. THE PT FAILED HIS SPEECH EVAL THIS AM AND IS MADE NPO AT THIS TIME. DR. STANTON AT THE BEDSIDE TO ASSESS THE PT, PLAN IS TO START CLINIMIX AND IF CBGs CONTINUE TO BE STABLE STATUS CHANGE TO MEDICAL. SOCIAL SERVICE CONSULT PLACED FOR DISCHARGE PLANNING. CALL LIGHT IN REACH, BED ALARM IS ON WILL CONTINUE TO MONITOR.
--- NOTE | 2021-09-01 12:23 | NUR ---
PT UPDATE.... A DOBHOFF WAS PLACED PER ORDERS, PLACEMENT IS AT 63CM, THIS WAS VERIFIED BY XRAY. TUBE FEEDS WERE STARTED AT 15MLS/HR W/30MLS Q4 H2O FLUSHES. THE FAMILY WAS UPDATED. WILL CONTINUE TO MONITOR.
--- NOTE | 2021-09-01 15:23 | NUR ---
PT UPDATE.... PT WORKED WITH PT/OT AND GOT UP INTO THE RECLINER CHAIR WITH 2 MAX ASSIST. THE PT IS TOLERATING THE DOBHOFF FEEDING TUBE WELL, NO ATTEMPTS TO PULL IT SINCE IT WAS PLACED. THE PT IS MORE ALERT THIS AFTERNOON THAN HE WAS EARLIER THIS SHIFT. THE PT IS TRANSFERING TO PCU, REPORT GIVEN TO DRILLING FIELD SPECIALISTYENI BUCHANAN, ALL OF PT'S BELONINGS PACKED AND WILL BE SENT WITH THE PT. WILL CONTINUE TO MONITOR UNTIL PT IS TAKEN TO PCU.
--- NOTE | 2021-09-01 18:24 | NUR ---
SHIFT SUMMARY.... NO ACUTE NEGATIVE CHANGES NOTED THIS SHIFT. THE PT'S VS HAVE BEEN STABLE. THE PT'S TUBE FEEDS ARE CURRENTLY AT GOAL OF 25LS/HR. THE PT'S CUMMINGS IS PATENT AND DRAINING TO GRAVITY. THE PT HAS BEEN UP IN THE CHAIR FOR SEVERAL HOURS THIS AFTERNOON. THE PT'S FAMILY AT THE BEDSIDE DURING VISITING HOURS. THE PT IS TO TRANSFER OUT TO PCU, PER PROVIDER A D5 W DRIP IS TO BE STARTED AT 50LS/HR. WILL CONTINUE TO MONITOR UNTIL REPORT IS GIVEN TO ONCOMING RN.
[2021-09-02 05:32] LABS: Anion Gap 9 mmol/L (6-16); Blood Urea Nitrogen 5 mg/dL (8-24); Bun/Creatinine Ratio 10.1 (12.0-20.0); CO2, Blood 27 mmol/L (21-32); Calcium, Blood 7.9 mg/dL (8.5-10.1); Chloride, Blood 91 mmol/L (98-108); Creatinine, Blood 0.49 mg/dL (0.60-1.20); Glomerular Filtration Rate >60 (60-); Glucose, Blood 135 mg/dL (70-99); Magnesium, Blood 1.3 mg/dL (1.6-2.4); Phosphorus, Blood 2.9 mg/dL (2.5-4.9); Sodium, Blood 127 mmol/L (136-145)
--- NOTE | 2021-09-02 06:10 | NUR ---
SHIFT SUMMARY PT ALERT, REPONDS TO SOME QUESTIONS, BUT GARBLED/SLURRED SPEECH AND DIFFICULT TO UNDERSTAND. PT IS COOPERTIVE AND FOLLOWS DIRECTIONS. SP02>92% ON RA. PT HAS PRODUCTIVE COUGH, SUCTIONED WHITE PHLEM AFTER COUGH. TELEMETRY SHOWS NSR, HR 70'S. PT HAS CUMMINGS CATHETER DRAINING TO GRAVITY. NO BM THIS SHIFT. PT DENIES PAIN. PT HAS DOBHOFF, INFUSING AT GOAL RATE OF 25 MLS/HR. PT UP IN CHAIR AT START OF SHIFT, THEN WITH LIFT, MOVED PT TO BED. PT WAS ABLE TO REPOSITION SELF IN BED, HELPED ROLL. D5 INFUSING PER EMAR. PT HAD K+ LAB OF 3.0 THIS AM. CALL PLACED TO MD MCKENNA. MD MCKENNA WITH ORDERS FOR 40 MEQ IV X1. CALL LIGHT IN REACH. WILL GIVE REPORT TO ONCOMING NURSE.
--- NOTE | 2021-09-02 18:20 | NUR ---
SHIFT SUMMARY PT A&O X3 W/ GARBLED/SLURRED SPEECH. PT VSS. SPO2 > 92% ON RA. MONITOR SHOWING SR, HR 80's-90's. TF INFUSING VIA NGT UPON CARE ASSUMPTION, PLACED ON STANDBY LATER IN AM D/T LUNG SOUNDS COARSE W/ CRACKLES & PT W/ CONGESTED COUGH, PRODUCING THICK CLEAR/TIJERINA SPUTUM REQUIRING FREQUENT SUCTIONING. MD STANTON NOTIFIED W/ INSTRUCTION TO HOLD TF & GIVE IV LASIX. IV LASIX GIVEN & PT HAD LITTLE TO NO IMPROVEMENT. THEN W/ ORDER TO DC TF. PT HOWEVER ALSO FAILING ST EVAL TODAY. PT REMAINS NPO. CBG's STABLE TODAY, ON THE LOWER SIDE THIS EVENING. DEXTROSE 5% GTT INFUSING PER ORDERS.
[2021-09-03 04:29] LABS: Anion Gap 10 mmol/L (6-16); Blood Urea Nitrogen 4 mg/dL (8-24); Bun/Creatinine Ratio 8.5 (12.0-20.0); CO2, Blood 26 mmol/L (21-32); Chloride, Blood 87 mmol/L (98-108); Creatinine, Blood 0.47 mg/dL (0.60-1.20); Glomerular Filtration Rate >60 (60-); Glucose, Blood 97 mg/dL (70-99); Magnesium, Blood 1.3 mg/dL (1.6-2.4); Phosphorus, Blood 3.2 mg/dL (2.5-4.9); Potassium, Blood 3.3 mmol/L (3.5-5.5); Sodium, Blood 123 mmol/L (136-145)
--- NOTE | 2021-09-03 06:20 | NUR ---
SHIFT SUMMARY PT A&OX2. ALERT, SOMETIMES UNSURE OF WHERE HE IS. SP02>92% ON RA W/ A FEW DIPS IN THE NIGHT TO MID 80'S WHEN SLEEPING, BUT INCREASES BACK TO BASELINE. TELEMETRY SHOWS NSR, HR 70'S. CUMMINGS CATHETER DRAINING TO GRAVITY. NO BM THIS SHIFT. CBG ALL IN NORMAL RANGE. FLUIDS INFUSING PER EMAR. PT REPOSITIONED SELF IN BED. PT HAD LEVELS OF K+ 3.3 AND MAG 1.3 THIS AM. CALL PLACED TO MD RAMIREZ. MD RAMIREZ WITH ORDERS FOR REPLACEMENT, SEE EMAR. CALL LIGHT IN REACH.
--- NOTE | 2021-09-03 18:35 | NUR ---
SHIFT SUMMARY PT A&O X4, SPEECH MORE CLEAR. VSS. SPO2 > 92% ON RA. PT STILL W/ PRODUCTIVE COUGH OF THICK CLEAR SPUTUM, REQUIRING SUCTIONING. MONITOR SHOWING SR, HR 80's. PT NPO MAJORITY OF DAY. DEXTROSE 5% GTT INFUSING PER ORDERS. LOW CBG IN THE 40's THIS AM. PT REPORTING FEELING "COLD", DENYING ANY OTHER LOW CBG SYMPTOMS. CALL TO MD STANTON W/ ORDER FOR D50 PUSH & INCREASE D5 GTT (SEE ORDERS). PT CBG IMPROVED TO 180's. PT THEN LATER SEEN BY SPEECH THERAPY & CLEARED FOR PUREE DIET & NECTAR THICK LIQUIDS. PT ABLE TO TOLERATE PO INTAKE FOR DINNER, EATING 100% OF SUPERVISED MEAL W/ MINIMAL THROAT CLEARING. ORAL CARE PROVIDED.
[2021-09-04 04:49] LABS: Anion Gap 10 mmol/L (6-16); Blood Urea Nitrogen 7 mg/dL (8-24); Bun/Creatinine Ratio 12.8 (12.0-20.0); CO2, Blood 26 mmol/L (21-32); Calcium, Blood 7.8 mg/dL (8.5-10.1); Chloride, Blood 84 mmol/L (98-108); Creatinine, Blood 0.55 mg/dL (0.60-1.20); Glomerular Filtration Rate >60 (60-); Glucose, Blood 95 mg/dL (70-99); Magnesium, Blood 1.6 mg/dL (1.6-2.4); Phosphorus, Blood 2.7 mg/dL (2.5-4.9); Potassium, Blood 3.5 mmol/L (3.5-5.5); Sodium, Blood 120 mmol/L (136-145)
--- NOTE | 2021-09-04 06:03 | NUR ---
SHIFT SUMMARY PT ALERT, SOMETIMES UNSURE OF WHERE HE IS. ATTEMPTED TO GET OUT OF BED X2 THIS SHIFT, ONCE TO "GET COFFEE". SP02>92% ON RA. TELEMETRY SHOWS NSR, HR 80'S. CUMMINGS CATHETER DRAINING TO GRAVITY. NO BM THIS SHIFT, UP TO BSC WITH GAS. CBG ALL IN NORMAL RANGE, TAKEN ON EAR. FLUIDS INFUSING PER EMAR. PT REPOSITIONED SELF IN BED. CALL LIGHT IN REACH.
--- NOTE | 2021-09-04 17:37 | NUR ---
SHIFT SUMMARY PT A&O X4, SPEECH SLURRED. VSS. SPO2 > 92% ON RA. MONITOR SHOWING SR, HR 80's. DEXTROSE 5% GTT DC'd PER MD ORDER THIS SHIFT. Q2H CBG MONITORING W/ CBG's 80's-90's W/ PT EATING PURREE DIET. [place] Bag PATENT & DRAINING. BED ALARM ON.
[2021-09-05 04:42] LABS: Anion Gap 11 mmol/L (6-16); Blood Urea Nitrogen 6 mg/dL (8-24); Bun/Creatinine Ratio 10.5 (12.0-20.0); CO2, Blood 25 mmol/L (21-32); Calcium, Blood 8.2 mg/dL (8.5-10.1); Chloride, Blood 84 mmol/L (98-108); Creatinine, Blood 0.57 mg/dL (0.60-1.20); Glomerular Filtration Rate >60 (60-); Glucose, Blood 85 mg/dL (70-99); Potassium, Blood 3.7 mmol/L (3.5-5.5); Sodium, Blood 120 mmol/L (136-145)
--- NOTE | 2021-09-05 07:43 | NUR ---
SHIFT SUMMARY PT IS AOX3 T/O SHIFT. BECOMES CONFUSED REGARDING SURROUNDING THROUGH NIGHT INTO EARLY AM. SR 90'S. SKIN IS PWD T/O SHIFT. THIS RN COMPARES CBG WITH FINGER VS EARLOBE D/T DAY REPORT OF NEED FOR EARLOBE CHECKS. NO MAJOR DISCREPANCY FOUND IN ACCURACY WHEN HAND IS WARM/PINK. PT REPOSITIONS SELF T/O NIGHT. TOLERATES ORAL CARE. WET SOUNDING COUGH T/O SHIFT. NONPRODUCTIVE. PT UNABLE TO COUGH WHEN DIRECTED TO COUGH AND DEEP BREATHE. SAYS "I CAN'T".
--- NOTE | 2021-09-05 18:20 | NUR ---
Call placed to Dr Bang to notify of decreasing sodium level. Provider orders for NS rate increase to 100 mL/hr and recheck in morning. No changes in mentation noted compared to previous assessment.
--- NOTE | 2021-09-06 04:48 | NUR ---
PATIENT ALERT AND ORIENTATED THROUGOUT THE NIGHT, CIWA 3-6 NOTED SLIGHT DIAPHORESIS, AGITATION AND ANXIETY, PATIENT TRIED TO LEAVE AMA CONVINCED HIM TO STAY TO TALK TO MD IN THE AM, PATIENT CUMMINGS CATHETER DRAINING CLEAR YELLOW URINE, SODIUM INCREASED 118 TO 120, Q4 CBG CHECKS STABLE, PATIENT GRUMPY THROUGHOUT THE ENTIRE EVENING.
[2021-09-06 05:00] LABS: Anion Gap 10 mmol/L (6-16); Blood Urea Nitrogen 6 mg/dL (8-24); Bun/Creatinine Ratio 10.1 (12.0-20.0); CO2, Blood 23 mmol/L (21-32); Calcium, Blood 7.8 mg/dL (8.5-10.1); Chloride, Blood 88 mmol/L (98-108); Glomerular Filtration Rate >60 (60-); Glucose, Blood 80 mg/dL (70-99); Potassium, Blood 3.5 mmol/L (3.5-5.5); Sodium, Blood 121 mmol/L (136-145)
--- NOTE | 2021-09-06 12:47 | NUR ---
PT AGITATED THAT PUMP IS BEEPING, PT NOTED TO BE ON PHONE WITH ARM BEDNT PT ASKED TO CHANGE HANDS THAT HE IS TALKING ON THE PHONE WITH AND PT STS "NO, I CAN'T HEAR YOU" AND CONTINUES TALKING ON THE PHONE AND EXPRESSING AGITATION ABOUT PUMP ALARMING, PT AGAIN ASKED TO CHANGE ARMS WHICH HE THEN COMPLIES
--- NOTE | 2021-09-06 18:22 | NUR ---
SHIFT NOTE PT REFUSED MORNING VITALS, THEN THIS EVENING REFUSED DINNER AND ALLOWED HIS VITALS TO BE TAKEN. PT HAS BEEN UP TO CHAIR AND TO BED T/O THE DAY. HE DID EAT HIS BREAKFAST AND LUNCH TODAY. HE HAS OTHERWISE BEEN SLEEPING FOR MOST OF THE DAY. SISTER HIEN CAME TO GET HER EBT CARD TODAY WHICH WAS OKd BY PATIENT, CARD ONLY HOME WITH SISTER, HIS WALLET AND ALL OTHER CONTENTS RETURNED TO HIS BELONGINGS. VSS. OTHERWISE NO ACUTE CCAHNGES THIS SHIFT
--- NOTE | 2021-09-06 20:18 | NUR ---
PT THREATENING TO LEAVE AMA CALL MADE TO SISTER, HIEN, IN REGARDS TO PATIENT STATING HE IS GOING TO GO HOME. PT "AWAITING PLACEMENT TO A SNF" PER MD NOTES. PT IS ALERT AND IN HIS RIGHT MIND TO MAKE DECISIONS FOR HIMSELF. PT UPSET THAT HE IS ON A PUREE DIET WITH TEASPOON FULLS OF THIN LIQUIDS AND JUST WANTS HIS COFFEE. PT FULLY UNDERSTANDING WHAT LEAVING AMA ENTAILS AND IS DRESSED AND PREPARED TO LEAVE WITH HIS BAGS. TRANSFERRED SISTER INTO ROOM TO SPEAK WITH PT. SISTER STATES SHE WAS JUST PLACED ON CONTINUOUS OXYGEN AT HOME AND IS UNABLE TO CARE FOR HER BROTHER. STATES HE HAS AT LEAST 4 STEPS TO CLIMB TO GET TO HIS LIVING AREA AND ANOTHER 4 STEPS TO CLIMB TO GET TO HIS ROOM.
--- NOTE | 2021-09-06 22:51 | NUR ---
PATIENT FOUND AT SHIFT CHANGE TO BE SITTING IN CHAIR PUTTING ON CLOTHES FROM HOME, SHIRT, JACKET AND PANTS, MIDLINE STILL INTACT [employer]USUF AND CUMMINGS CATHETER DRAINING YELLOW CLEAR AND NO SIGNS/SYMPTOMS OF URETHRAL IRRITATION, REQUESTING HE BE ABLE TO GO HOME, ASKED CHARGE TO GET NEW ORDERS FOR HIS ANXIETY, PRESIDENT + PUBLISHER SAT WITH PATIENT WHILE BEDSIDE RN AND MYSELF FINISH GETTING SHIFT CHANGE REPORT, ONCE ATIVAN VERIFIED PATIENT RECEIVED ATIVAN 1MG IVP IN [employer] MIDLINE, PATIENT REQUESTED SHORTLY AFTER TALKING TO HIS SISTER ON THE PHONE TO GET HIM TO AGREE TO NOT GO AMA, TO GO BACK TO BED, PANTS REMOVED BRIEF CHANGED BM CLEANED UP AND PATIENT IS NOW RESTING IN BED.
--- NOTE | 2021-09-07 05:18 | NUR ---
PATIENT DIDN'T SLEEP ALL NIGHT, ANXIOUS AND AGITATED. WANTS TO DRINK COFFEE ALL NIGHT, REFUSING TO STAY IN HOSPITAL GOWN, MIDLINE IN Y[place]UF ARM IN PLACE AND PATENT, CUMMINGS CATHETER IN PLACE DRAINING CLEAR YELLOW URINE, PATIENT IS UP IN A CHAIR FIDGETING AND REQUIRING CONSTANT REDIRECTION. PATIENT IS VERY UNSTEADY ON HIS FEET, DIFFICULT GETTING UP WITH ONE PERSON ASSIST WITH [facility], HE DOESN'T WANT TO FOLLOW INSTRUCTIONS, WANTS TO DO IT HIS WAY OR NOT AT ALL. PATIENT WAS EDUCATED TONIGHT ON SAFETY, CHARGE EDUCATED HIM ON AMA, AND HE IS WANTING TO LEAVE SOON HIS SISTER HIEN GETS HERE, SHE IS AWARE.
--- NOTE | 2021-09-07 18:17 | NUR ---
AMA DISCHARGE PT A&Ox2; ANXIOUS AND IRRITABLE T/O SHIFT. FORGETFUL AND SETTING OFF ALARM. PT DEMANDING TO GO HOME, DOES NOT WANT TO GO TO REHAB/SNF. 1 PERSON ASSIST WITH WALKER AND GAITBELT. PT DENIES PAIN, CHEST PAIN, NAUSEA, SOB, DIZZINESS AND NUMB/TINGLING. PT REFUSING MEDICATIONS THIS AM. PT EATING MINIMAL DURING MEALS, DOES NOT WANT TO EAT THE PUREE DIET. PT CALLING SISTER MULTIPLE TIMES T/O SHIFT REGARDING HER PICKING HIM UP. RIDE TO ROOM AT 1800; PT EDUCATED ON AMA RISK VS BENEFITS; PT SIGNED. PT LEFT ROOM VIA WHEELCHAIR WITH FAMILY MEMBER. NOTIFIED DR ALEGRIA.
== END 2021-09-07 18:15 | disposition left against medical advice (07) | DRG 871 ==
LOC: ER 19:12 → ICUW 23:41 → PCU 09-01 19:01
PROVIDERS: Emergency Medicine; Family Medicine; Internal Medicine; ADMIT Internal Medicine
PROC: 5A09457 Assistance with Respiratory Ventilation, 24-96 Consecutive Hours, Continuous Positive Airway Pressure (ICD-10-PCS; principal; 2021-08-29)
DX: A41.51 Sepsis due to Escherichia coli [E. coli] (principal); G93.41 Metabolic encephalopathy; R65.21 Severe sepsis with septic shock; Z66 Do not resuscitate; J96.01 Acute respiratory failure with hypoxia; N39.0 Urinary tract infection, site not specified; E87.2 Acidosis; E87.1 Hypo-osmolality and hyponatremia; E46 Unspecified protein-calorie malnutrition; Z68.1 Body mass index [BMI] 19.9 or less, adult; F10.239 Alcohol dependence with withdrawal, unspecified; Z20.822 Contact with and (suspected) exposure to COVID-19; E16.2 Hypoglycemia, unspecified; E87.6 Hypokalemia; Z78.1 Physical restraint status; E83.42 Hypomagnesemia; R13.10 Dysphagia, unspecified; J44.9 Chronic obstructive pulmonary disease, unspecified; I10 Essential (primary) hypertension; Z90.49 Acquired absence of other specified parts of digestive tract; Z98.890 Other specified postprocedural states; Z79.899 Other long term (current) drug therapy; Z87.891 Personal history of nicotine dependence
CPT/HCPCS: 0241U; 31720; 36415; 36600; 51701; 51702; 70450; 71045; 71260; 74177; 74230; 80048; 80053; 80069; 81001; 82140; 82330; 82550; 82553; 82607; 82746; 82803; 82947; 83605; 83735; 84100; 84145; 84295; 84443; 84484; 85025; 85027; 86140; 87040; 87077; 87086; 87186; 92526; 92610; 92611; 93005; 93010; 94640; 94660; 94760; 96365; 96374; 96375; 96376; 97110; 97116; 97162; 97166; 97530; 97535; 99285-25; A9270; C1751; G0480; J0456; J0610; J0696; J1610; J1650; J1940; J2060; J3411; J3475; J3480; J7030; J7042; J7050; J7070; J7120; Q9967

== ENCOUNTER → 2021-12-21 | Outpatient (CLI) | payer OTHER ==
[2021-12-25 09:12] LABS: Stool Occult Bld Immuno 1 Positive (NEGATIVE)
== END | disposition home or self-care (01) ==
LOC: LAB 12:43 → LAB SHORT 12:43
PROVIDERS: Nurse Practitioner Family
DX: D50.9 Iron deficiency anemia, unspecified (principal)
CPT/HCPCS: G0328

== ENCOUNTER → 2022-02-26 | Outpatient (CLI) | payer OTHER | END | disposition home or self-care (01) | LOC: LAB 09:58 → LAB SHORT 09:58 | DX: M71.022 Abscess of bursa, left elbow (principal) | CPT/HCPCS: 87070; 87075; 87076; 87205 ==